=== PATIENT | female | born 1975 | race Caucasian/White ===

== ENCOUNTER 2016-03-30 13:07 | Emergency (ER) | payer OTHER ==
[~2016-03-30] VITALS: Ht 162.6 cm; Wt 65.8 kg
[2016-03-30 13:56] LABS: ABSOLUTE BASOPHIL COUNT 0.1 /CUMM (0.0-0.2); ABSOLUTE EOSINOPHIL COUNT 0.1 /CUMM (0.0-0.7); ABSOLUTE GRANULOCYTE CT 6.2 /CUMM (1.4-6.5); ABSOLUTE LYMPH COUNT 3.7 /CUMM (1.2-3.4); ABSOLUTE MONOCYTE COUNT 0.5 /CUMM (0.10-0.60); BASOPHIL % 0.7 % (0.0-2.0); EOSINOPHIL % 1.1 % (0-5); MEAN CORPUSCULAR HGB 28.7 PG (27.0-31.0); MEAN CORPUSCULAR HGB CONC 33.7 G/DL (33.0-37.0); MEAN CORPUSCULAR VOLUME 85.2 FL (81.0-99.0); MEAN PLATELET VOLUME 9.2 FL (7.4-10.4); PLATELET COUNT 312 /CUMM (130-400); RBC DISTRIBUTION WIDTH 13.5 % (11.5-14.5); RED BLOOD CELL CT 5.16 /CUMM (4.20-5.40); WHITE BLOOD CELL COUNT 10.7 /CUMM (4.8-10.8)
[2016-03-30 14:12] LABS: GRANULOCYTE % 58.4 % (42.2-75.2)
--- NOTE | 2016-03-30 15:32 | ED CARDIAC/CP/PALPITATIONS ---
History of Present Illness General Chief Complaint: Chest Pain Stated Complaint: CHEST PAIN; SOB; ARM PAIN Source: patient Exam Limitations: no limitations Vital Signs & Intake/Output Vital Signs & Intake/Output Vital Signs Date Time Temp Pulse Resp B/P Pulse O2 O2 Flow FiO2 Ox Delivery Rate 03/30 1930 98.1 72 18 122/84 97 Room Air 03/30 1830 97.4 68 18 129/79 98 03/30 1558 97 Room Air Room Air 03/30 1555 98.2 68 20 118/75 97 Room Air Room Air Allergies Coded Allergies: No Known Drug Allergies (03/30/16) Reconcile Medications Ketorolac Tromethamine 10 MG TABLET 1 TAB PO TID PRN PAIN Oxycodone HCl/Acetaminophen (Percocet 5-325 MG Tablet) 5 MG-325 MG TABLET 1 TAB PO TID PRN PAIN 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 EKG DONE ON ARRIVAL. Triage Nurses Notes Reviewed? yes Onset: Abrupt Duration: constant Timing: single episode today Quality/Severity: stabbing Activities at Onset: activity Prior Chest Pain/Card Workup: no prior chest pain, no prior cardiac workup : No Patient currently breastfeeds: No HPI: Patient is a 40-year-old female with a past medical history of anxiety who presents to emergency room who woke up this morning with right-sided scapular muscular pain that was persistent in the mid morning however after sneezing patient then states that she had radiating pain to her right-sided chest region. She does complain of deep inhalation causes pain and dyspnea on exertion. Patient took Tylenol prior to arrival with no relief Denies any history of DVT PE, hemoptysis, oral contraceptive, leg swelling, It is noted by patient that she did have a bunionectomy performed 6 weeks ago however no surgery or trauma has occurred in the last 4 weeks (MICHELLE ALBA) Past History Travel History Traveled to [place] past 21 day No Medical History Any Pertinent Medical History? none Neurological: NONE Cardiovascular: NONE Respiratory: NONE Gastrointestinal: NONE Hepatic: NONE Renal: NONE Musculoskeletal: NONE Psychiatric: NONE Endocrine: NONE Surgical History Surgical History: non-contributory Psychosocial History What is your primary language Sami Tobacco Use: Never used ETOH Use: occasional use Family History Hx Contributory? No (MICHELLE ALBA) Review of Systems Review of Systems Constitutional: Reports: no symptoms. EENTM: Reports: no symptoms. Respiratory: Reports: see HPI. Denies: cough, short of breath. Cardiovascular: Reports: see HPI, chest pain. GI: Reports: no symptoms. Genitourinary: Reports: no symptoms. Musculoskeletal: Reports: see HPI. Skin: Reports: no symptoms. Neurological/Psychological: Reports: no symptoms. Hematologic/Endocrine: Reports: no symptoms. Immunologic/Allergic: Reports: no symptoms. All Other Systems: Reviewed and Negative (MICHELLE ALBA) Physical Exam Physical Exam General Appearance: no apparent distress, alert Cardiovascular: regular rate/rhythm Comments: Well-developed well-nourished person in no acute distress HEENT: Normal EENT exam, extraocular motion intact, no nystagmus. Pupils equally round and reactive to light and accommodation. Nose is atraumatic. External auditory canal and Tympanic membranes clear. Pharynx normal. No swelling or edema. Neck: Supple, no lymphadenopathy, normal range of motion without pain or tenderness Back: no CVA tenderness. Cardiovascular: Regular rate and rhythms no murmurs rubs or gallops, normal JVP Respiratory: No respiratory distress.breath sounds clear to auscultation bilaterally Abdomen: Soft, nontender nondistended, no appreciable organomegaly. Normal bowel sounds. No ascites Extremity: No edema, no calf tenderness to palpation, normal and equal pulses. Neuro: Alert oriented x3, motor sensory normal, Skin: No appreciable rash on exposed skin, skin is warm and dry. Psych: Mood and affect is normal, memory and judgment is normal. Diagram Chest, Abdomen, Back: 1) Parathoracic muscular point tenderness noted notable inspection no central spinous tenderness 2) Mild chest wall point tenderness noted normal inspection Core Measures ACS in differential dx? No Severe Sepsis Present: No Septic Shock Present: No All Positive = PERC Ruled Out: Negative: age < 50 years, heart rate < 100 bpm, O2 sat > 94%, no hemoptysis, no hormone use, no prior DVT or PE, no unilateral leg swellin, no surgery/trauma w/ in 4w. (MICHELLE ABLA) Progress Differential Diagnosis: AMI, aortic dissection, atrial fibrillation, cholecystitis, CHF/pulm edema, costochondritis, hyperkalemia, hypovolemia, hyperthyroid, hyperventilation, intracranial hemorrhage, musculoskeletal pain, myocarditis, pancreatitis, pericarditis, pneumonia, pneumothorax, PSVT, pulmonary embolism, PUD/GERD, PVCs/PACs, respiratory failure, rib fracture, sepsis, unstable angina, V-fib/V-Tach, WPW syndrome Plan of Care: Orders Procedure Date/time Status TROPONIN LEVEL 03/30 1750 Complete EKG 03/30 1750 Active Add-on Test (ER Only) 03/30 1533 Active HUMAN BETA HCG SCREEN 03/30 1348 Complete TROPONIN LEVEL 03/30 1343 Complete CBC WITHOUT DIFFERENTIAL 03/30 1343 Complete BASIC METABOLIC PANEL 03/30 1343 Complete EKG 03/30 1309 Active Laboratory Tests 03/30/16 1815: Troponin I < 0.01 03/30/16 1348: Anion Gap 11, Estimated GFR > 60, BUN/Creatinine Ratio 14.3, Glucose 109 H, Calcium 9.5, Troponin I < 0.01, Total Beta HCG NEGATIVE, CBC w Diff NO MAN DIFF REQ, RBC 5.16, MCV 85.2, MCH 28.7, RDW 13.5, MPV 9.2, Gran % 58.4, Lymphocytes % 34.7, Monocytes % 5.1, Eosinophils % 1.1, Basophils % 0.7, Absolute Granulocytes 6.2, Absolute Lymphocytes 3.7 H, Absolute Monocytes 0.5, Absolute Eosinophils 0.1, Absolute Basophils 0.1, PUBS MCHC 33.7 Patient currently is in no apparent distress. PERC Scored 0 essentially ruling out pulmonary embolism. Patient has reproducible pain upon deep inhalation and palpation of the chest wall 2 sets of cardiac enzymes were unremarkable - 4 hours apart. Repeat EKG noted sinus rhythm. Due to history of present illness and exam findings patient is likely have costochondritis or chest wall pain. Upon discharge patient looks well no apparent distress and will comply with discharge instructions and had no questions. (ALEXEY DIALLO,MICHELLE) Diagnostic Imaging: Viewed by Me: Radiology Read. Radiology Impression: no acute abnormality Initial ED EKG: SINUS RHYTHM NOTED AT 79 BPM Repeat EKG: unchanged Comments: PATIENT: JALIL BOWMAN PRESENT AGE: 40 PATIENT ACCOUNT NO: [id number] : 74 LOCATION: [facility] ORDERING PHYSICIAN: MICHELLE DIALLO SERVICE DATE: 03/30/16-160 EXAM TYPE: RAD - XRY-CHEST XRAY, PA AND LATERAL EXAMINATION: XR CHEST CLINICAL INFORMATION: Chest pain COMPARISON: None TECHNIQUE: PA and lateral chest FINDINGS: No focal consolidation, pleural effusion or pneumothorax. Heart size is normal. No acute osseous abnormality. IMPRESSION: No acute cardiopulmonary process. (MICHELLE ALBA) Departure Departure Disposition: HOME OR SELF CARE Condition: Stable Clinical Impression Primary Impression: Chest wall pain Referrals: KATI NGUYỄN,LI Jensen (PCP/Family) Additional Instructions: As discussed begin icing the area directly 20 minutes every 2 hours. Begin the prescription of ketorolac for pain and inflammation. Begin the prescription of Percocet for breakthrough pain relief. If symptoms worsen return to emergency room. If no better in 2 days follow-up with primary care doctor. prescription is awaiting a [facility] pharmacy. 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 I have also reviewed all the pertinent lab results and diagnostic results. I agree with the findings and the plan of care as documented in the PA's/MANA[employer]'s documentation. [X] I have reviewed the ED Record and agree with the PA's/MANAGER [employer]'s documentation. [] Additions or exceptions (if any) to the PAs/MANAGER [employer]'s note and plan are summarized below: [] (CYNTHIA NGUYỄN,CIRO Aguilar) Critical Care Note Critical Care Note Critical Care Time: non-applicable (MICHELLE ALBA)
--- NOTE | 2016-03-30 16:56 | RADIOLOGY REPORT ---
EXAMINATION: XR CHEST CLINICAL INFORMATION: Chest pain COMPARISON: None TECHNIQUE: PA and lateral chest FINDINGS: No focal consolidation, pleural effusion or pneumothorax. Heart size is normal. No acute osseous abnormality. IMPRESSION: No acute cardiopulmonary process.
[2016-03-30] MEDS ORDERED: PERCOCET 5-3251 EACH PO (19:06)
[2016-03-30] MEDS ORDERED: KETOROLAC TROME10 M1 PO (19:06)
[2016-03-30 19:30] VITALS: BP 122/84
== END 2016-03-30 19:31 ==
LOC: ERH 13:07
PROVIDERS: Emergency Medicine
DX: R07.89 Other chest pain (principal)
CPT/HCPCS: 93005; 93010; 96372; J1885